=== PATIENT | female | born 1970 | race Caucasian/White ===

== ENCOUNTER 2024-11-09 12:25 | Emergency (ER) | payer BC ==
[~2024-11-09] VITALS: Ht 162.6 cm; Wt 72.6 kg
[2024-11-09 12:55] VITALS: BP 129/73; TEMP 98.3; O2SAT 99
== END 2024-11-09 12:55 | disposition home or self-care (01) ==
LOC: ER 12:28
DX: I10 Essential (primary) hypertension (principal)